=== PATIENT | male | born 1985 | race Two or more races ===

== ENCOUNTER 2018-04-09 12:32 | Emergency (ER) | payer MEDICARE, MEDICAID ==
[2018-04-09] MEDS ORDERED: TETRACAINE HCL 0.5% OPH SOLN 2 ML OS ONE ×2 (12:48→13:01)
[2018-04-09] MEDS ORDERED: KETOROLAC TROMETHAMINE 0.45% 4 DROP/0.4 ML DROPERETTE OS ONE (13:02)
[2018-04-09 13:05] VITALS: BP 135/81
--- NOTE | 2018-04-09 13:13 | ER Document Report ---
ED Eye Complaint - General Chief Complaint: Eye Pain Stated Complaint: LEFT EYE IRRITATION Time Seen by Provider: 04/09/18 12:50 Notes: Patient is a 32-year-old healthy male complaining of acute left eye discomfort 1 day. Patient reports that he had an eyelash in his eye last night and was rubbing his eye vigorously trying to get the eyelash out. Woke up this morning with left eye discomfort, scratchiness, watering from his left eye. Patient has a prescription for glasses but does not wear them. Non-contact wearer. Patient has a history of asthma and is requesting refills of his albuterol and Flovent. Patient reports that he does not use the inhalers daily. Usually only when he gets sick but is out of them presently. TRAVEL OUTSIDE OF THE [place] IN LAST 30 DAYS: No - HPI Onset: This morning Eye location: Left Injury: No Quality of pain: Achy, Burning Associated symptoms: Photophobia, Foreign body sensation - Related Data Allergies/Adverse Reactions: No Known Allergies Allergy (Unverified 07/14/16 20:45) Past Medical History - General Information source: Patient - Social History Smoking Status: Current Every Day Smoker Chew tobacco use (# tins/day): No Frequency of alcohol use: Social Drug Abuse: None Lives with: Family Family History: Reviewed & Not Pertinent Patient has suicidal ideation: No Patient has homicidal ideation: No - Medical History Medical History: Negative Pulmonary Medical History: Reports: Hx Asthma Renal/ Medical History: Denies: Hx Peritoneal Dialysis - Immunizations Hx Diphtheria, Pertussis, Tetanus Vaccination: Yes Review of Systems - Review of Systems Constitutional: No symptoms reported EENT: No symptoms reported Cardiovascular: No symptoms reported Respiratory: No symptoms reported Gastrointestinal: No symptoms reported Genitourinary: No symptoms reported Male Genitourinary: No symptoms reported Musculoskeletal: No symptoms reported Skin: No symptoms reported Hematologic/Lymphatic: No symptoms reported Neurological/Psychological: No symptoms reported Physical Exam - Vital signs Interpretation: Normal - General General appearance: Appears well, Alert - HEENT Head: Normocephalic, Atraumatic Eyes: No: Periorbital ecchymosis, Periorbital edema, Scleral icterus Conjunctiva: Injected Cornea: Corneal abrasion, Flourescein stain uptake. No: Embedded foreign body, Superficial foreign body Extraocular movements intact: Yes Eyelashes: Normal Pupils: PERRL Visual acuity- Right eye: 20/30 Visual acuity- Left eye: 20/50 Visual acuity- Both eyes: 20/30 Corrective lenses worn: No - Respiratory Respiratory status: No respiratory distress Chest status: Nontender Breath sounds: Normal Chest palpation: Normal - Cardiovascular Rhythm: Regular Heart sounds: Normal auscultation Murmur: No - Abdominal Inspection: Normal Distension: No distension Bowel sounds: Normal Tenderness: Nontender Organomegaly: No organomegaly - Back Back: Normal, Nontender - Extremities General upper extremity: Normal inspection, Nontender, Normal color, Normal ROM , Normal temperature General lower extremity: Normal inspection, Nontender, Normal color, Normal ROM , Normal temperature, Normal weight bearing. No: Hiram's sign - Neurological Neuro grossly intact: Yes Cognition: Normal Orientation: AAOx4 Homero Coma Scale Eye Opening: Spontaneous [place] Coma Scale Verbal: Oriented [place] Coma Scale Motor: Obeys Commands Bill[place] Coma Scale Total: 15 Speech: Normal Motor strength normal: LUE, RUE, LLE, RLE Sensory: Normal - Psychological Associated symptoms: Normal affect, Normal mood - Skin Skin Temperature: Warm Skin Moisture: Dry Skin Color: Normal Procedures - Eye Procedure Left Alcaine Drops Administered: Yes Acular drops administered: Left Fluorescein applied: Left Slit lamp used: No Eyes picture: 1 - Corneal abrasion Discharge - Discharge Clinical Impression: Corneal abrasion Qualifiers: Encounter type: initial encounter Laterality: left Qualified Code(s): S05.02XA - Injury of conjunctiva and corneal abrasion without foreign body, left eye, initial encounter Asthma Qualifiers: Asthma severity: mild Asthma persistence: intermittent Asthma complication type : uncomplicated Qualified Code(s): J45.20 - Mild intermittent asthma, uncomplicated Condition: Stable Disposition: HOME, SELF-CARE Instructions: Eyedrop Use ([facility]), Oral Narcotic Medication ([facility]), Inhaled Bronchodilators ([facility]) Additional Instructions: You have a corneal abrasion on your left eye Use antibiotic eyedrops as prescribed Use anti-inflammatory eyedrops as prescribed Use pain medication sparingly for severe pain Cool compresses to eye for comfort Do not rub your eye Wear sunglasses outside for comfort Follow-up with ophthalmology if you are not significantly improved in 24 hours Your inhalers for your asthma were refilled Use as prescribed Prescriptions: Albuterol Sulfate [Proair HFA Inhalation Aerosol 8.5 gm MDI] 2 puff IH Q4H PRN # 1 mdi PRN Reason: Fluticasone Propionate [Flovent Hfa 110 Mcg Inhalation Aerosol 12 gm] 1 puff IH Q12 #1 inhaler Ketorolac Tromethamine [Acular] 1 drop OS Q6H PRN #5 ml PRN Reason: Moxifloxacin HCl [Vigamox] 1 drop OS TID #1 bottle Oxycodone HCl/Acetaminophen [Percocet 5-325 mg Tablet] 1 tab PO Q4H PRN #6 tablet PRN Reason: Forms: Return to Work
== END 2018-04-09 13:28 | disposition home or self-care (01) ==
LOC: ER 12:32
DX: S05.02XA Injury of conjunctiva and corneal abrasion without foreign body, left eye, initial encounter (principal); J45.20 Mild intermittent asthma, uncomplicated; X58.XXXA Exposure to other specified factors, initial encounter
CPT/HCPCS: 99283; A9270